=== PATIENT | male | born 1945 | race Caucasian/White ===

== ENCOUNTER 2021-08-26 09:50 | Inpatient (IN) | payer MEDICARE, OTHER ==
[~2021-08-26] VITALS: Ht 175.3 cm; Wt 80.3 kg
[~2021-08-26 09:50] MED LIST: ASPI325; ATOR40TA PO; Aspir 8181 MG PO
--- NOTE | 2021-08-26 17:12 | NUR ---
SHIFT SUMMARY PT A&Ox4; CALM AND COOPEATIVE WITH CARE. PT RESTING IN BED DURING SHIFT. UP WITH 1 PERSON ASSIST. PT DENIES PAIN, CHEST PAIN/PRESSURE, SOB, NAUSEA AND DIZZINESS. RIGHT RADIAL SITE WITH TR BAND IN PLACE, RECOVERING PER ORDERS/PROTOCOL; NO BLEEDING, BRUISING OR HEMATOMA NOTED. VSS. NO OTHER ACUTE CHAGNES NOTED. PLANS FOR SECOND PROCEDURE TOMORROW; NPO AT [place]. WILL CONTINUE TO MONITOR UNITL REPORT GIVEN TO ONCOMING RN.
[2021-08-27 04:11] LABS: BASOPHILS ABSOLUTE AUTO 0.05 K/mm3 (0.00-0.23); BASOPHILS PERCENT AUTO 1 % (0-2); EOSINOPHILS ABSOLUTE AUTO 0.16 K/mm3 (0.00-0.68); EOSINOPHILS PERCENT AUTO 2 % (0-6); Hematocrit 43.5 % (37.0-53.0); Hemoglobin 15.1 g/dL (13.5-17.5); IMMATURE GRAN ABSOLUTE AUTO 0.02 K/mm3 (0.00-0.10); IMMATURE GRAN PERCENT AUTO 0 % (0-1); LYMPHOCYTES ABSOLUTE AUTO 1.87 K/mm3 (0.84-5.20); LYMPHOCYTES PERCENT AUTO 20 % (21-46); MONOCYTES ABSOLUTE AUTO 0.73 K/mm3 (0.16-1.47); MONOCYTES PERCENT AUTO 8 % (4-13); Mean Corpuscular HGB 30.8 pg (26.0-34.0); Mean Corpuscular HGB Conc 34.7 g/dL (31.5-36.5); Mean Corpuscular Volume 89 fL (80-100); Mean Platelet Volume 10.2 fL (9.1-12.4); NEUTROPHILS ABSOLUTE AUTO 6.32 K/mm3 (1.96-9.15); NEUTROPHILS PERCENT AUTO 69 % (41-73); Platelet Count 182 K/mm3 (150-400); RDW Coefficient Variation 12.3 % (11.7-14.2); RDW Standard Deviation 39.9 fL (35.1-46.3); White Blood Cell Count 9.15 K/mm3 (4.00-11.30)
[2021-08-27 04:43] LABS: Anion Gap 6 mmol/L (6-16); Blood Urea Nitrogen 20 mg/dL (8-24); Bun/Creatinine Ratio 18.7 (12.0-20.0); CO2, Blood 23 mmol/L (21-32); Calcium, Blood 9.1 mg/dL (8.5-10.1); Chloride, Blood 112 mmol/L (98-108); Creatinine, Blood 1.07 mg/dL (0.60-1.20); Glomerular Filtration Rate >60 (60-); Glucose, Blood 98 mg/dL (70-99); Potassium, Blood 4.1 mmol/L (3.5-5.5); Sodium, Blood 141 mmol/L (136-145)
--- NOTE | 2021-08-27 06:10 | NUR ---
SHIFT SUMMARY NO ACUTE CHANGES THIS SHIFT. PT A&OX4. SP02>92% ON RA. TELEMETRY READS NSR, HR 60'S. PT HAS R RADIAL SITE, NO BLEEDING NO HEMATOMA. SITE SOFT. ARM BOARD IN PLACE. PT DENIED PAIN, "EXCEPT FOR WHERE THEY DID CPR" PT STATES. PT REFUSES MEDICATION FOR PAIN. PT UP TO BATHROOM SBA TO VOID. PT NPO SINCE MIDNIGHT FOR PROCEDURE. CALL LIGHT IN REACH.
--- NOTE | 2021-08-27 17:19 | NUR ---
SHIFT SUMMARY PT TO TRIP RIDER THIS AM; BACK TO ROOM AT APPRXO 1140; SCANT AMOUNT OF BLOOD NOTED TO DRESSING AT THIS TIME, REMAINED STABLE UNTIL WOUND CHECK AT 1235 DRESSING SATURATED WITH BLOOD, HELD PRESSURE FOR APPRXO 20 MINUTES AND PLACED PRESSURE DRESSING AND 5LB WEIGHT; NOTIIFED DR VELIZ, NO NEW ORDERS; PT CONTINUES TO OOZE FROM SITE; PLACED NICHOLE DRESSING AND REPLACED 5LB BAG; DRESSING AGAIN SATURATED; REPLACED DRESSING WITH OPSITE AND GAUZE; NOTIFIED DR; DR TO ROOM WITH EPI/LIDO AND INJECTED TO SITE; TERGADER WITH CHG IN PLACE AND 5LB WEIGHT REPLACED. WILL CONTINUE TO MONITOR. PT A&Ox4; CALM AND COOPERATIVE WITH CARE. PT RESTING IN BED DURING SHIFT ON BED REST POST OP; PER DR AT BEDSIDE OK TO RAISE HOB TO 30 DEGREES. PT REPORTS BACK PAIN, ASSIST WTIH REPOSITION. PT DENIES CHEST PAIN, SOB, NAUSEA AND DIZZINESS. BP SOFT, BUT TRENDING UP, DR NOTIFIED. RIGHT RADIAL C/D/I NO BLEEDING OR BRUISING NOTED. WILL CONTINUE TO MONITOR.
--- NOTE | 2021-08-27 22:30 | NUR ---
CARE ASSUMPTION PT A&OX4. SP02>92% ON RA. TELEMETRY READS NSR, HR 60'S. PT HAS R RADIAL SITE FROM 08/26. NO BLEEDING, NO HEMATOMA. OPSITE AND ARM BOARD IN PLACE. PT HAS R GROIN SITE FROM 08/27. OOZING AND BRUISING NOTED. NO HEMATOMA, SITE SOFT. SANDBAG PLACED ON SITE FOR PRESSURE. PT LAYING W/ HOB 30 DEGREES. PT USED URINAL. NEEDED TO HAVE BM AT START OF SHIFT. HELPED PT LOG ROLL ONTO BED VALDEZ FOR A LARGE BM. NO CHANGES TO GROIN SITE POST BED VALDEZ. PT DENIES PAIN. CALL LIGHT IN REACH.
[2021-08-28 04:18] LABS: Hematocrit 41.9 % (37.0-53.0); Hemoglobin 14.7 g/dL (13.5-17.5); Mean Corpuscular HGB 30.9 pg (26.0-34.0); Mean Corpuscular HGB Conc 35.1 g/dL (31.5-36.5); Mean Corpuscular Volume 88 fL (80-100); Mean Platelet Volume 10.3 fL (9.1-12.4); Platelet Count 180 K/mm3 (150-400); RDW Coefficient Variation 12.4 % (11.7-14.2); RDW Standard Deviation 40.4 fL (35.1-46.3); Red Blood Cell Count 4.75 M/mm3 (4.30-5.90); White Blood Cell Count 8.96 K/mm3 (4.00-11.30)
--- NOTE | 2021-08-28 06:14 | NUR ---
SHIFT SUMMARY PT A&OX4. SP02>92% ON RA. TELEMETRY READS NSR, HR 60'S. PT HAS R RADIAL SITE FROM 08/26. NO BLEEDING, NO HEMATOMA. OPSITE AND ARM BOARD IN PLACE. PT HAS R GROIN SITE FROM 08/27. OOZING AND BRUISING NOTED. NO HEMATOMA, SITE SOFT. SANDBAG PLACED ON SITE FOR PRESSURE. PT LAYING W/ HOB 30 DEGREES. PT USED URINAL. NEEDED TO HAVE BM AT START OF SHIFT. HELPED PT LOG ROLL ONTO BED VALDEZ FOR A LARGE BM. NO CHANGES TO GROIN SITE POST BED VALDEZ. PT SLEPT OFF AND ON DURING SHIFT. DID NEWSPAPER BRAIN PUZZLES IN MIDDLE OF NIGHT. CALL LIGHT IN REACH.
--- NOTE | 2021-08-28 09:52 | NUR ---
PATIENT REMAINS ALERT AND ORIENTED X4. ON ROOM AIR SATING ABOVE 94%. DENIES SOB. LUNGS SOUNDING CLEAR. TELE SHOWING SINUS RHYTHM WITH HR 60-70'S. DENIES CHEST PAIN/PRESSURE. VITAL SIGNS STABLE. POST ANGIO TEACHING REVIEWED. RIGHT RADIAL SITE WNL. NO SIGNS OF BLEEDING OR HEMATOMA. REMAINS SOFT AND NONTENDER. ARM BOARD IN PLACE. RIGHT GROIN SITE WITH DRESSING IN PLACE, DRAINAGE UNDER DRESSING REMAINS UNCHANGED PER CUSTOMER CARE VOICE CONSULTANT AND UNCHANGED THROUGHOUT THE MORNING. RIGHT GROIN SITE SLIGHTLY SWOLLEN AND RED. REMAINS SOFT AND NONTENDER. NO SIGNS OF ACTIVE HEMATOMA. PATIENT UP TO BATHROOM THIS AM. SITE REMAINS UNCHANGED. SKIN OTHERWISE OVERALL INTACT. DENIES ABDOMINAL PAIN/NAUSEA. EATING BREAKFAST AND DRINKING COFFEE. DENIES NEEDS AT THIS TIME. WILL CONTINUE TO MONITOR.
--- NOTE | 2021-08-28 10:03 | NUR ---
PRE ALGEBRA TEACHER IN TO SEE PATIENT. PLAN TO CHANGE RIGHT GROIN DRESSING AND WALK PATIENT. WILL MONITOR FOR ANY BLEEDING.
[2021-08-28] MEDS ORDERED: CLOP75 PO (10:50)
--- NOTE | 2021-08-28 13:31 | NUR ---
DISCHARGE: DISCHARGE INSTRUCTIONS REVIEWED. NO ACUTE CHANGES SEE PREVIOUS NOTE. NO BLEEDING AT GROIN SITE. POST ANGIO RADIAL AND GROIN SITE INSTRUCTIONS AND EDUCATION REVIEWED AND PATIENT WAS ABLE TO TEACH BACK. NEW MEDICATIONS REVIEWED AND CALLED INTO PHARAMACY. PATIENT VERBALIZED HE WILL BE PCIKING UP TODAY. IV TAKEN OUT PER PROTOCOL. PATIENT LEFT UNIT WALKING WITH AND ALL PERSONAL BELONGINGS.
== END 2021-08-28 13:35 | disposition home or self-care (01) | DRG 246 ==
LOC: MHTC 09:50 → PCU 13:02 → MHTC 13:02 → PCU 14:01
PROVIDERS: Internal Medicine Interventional Cardiology; ADMIT Internal Medicine Cardiovascular Disease
PROC: 027035Z Dilation of Coronary Artery, One Artery with Two Drug-eluting Intraluminal Devices, Percutaneous Approach (ICD-10-PCS; principal; 2021-08-27)
PROC: 5A12012 Performance of Cardiac Output, Single, Manual (ICD-10-PCS; 2021-08-27)
PROC: 4A023N7 Measurement of Cardiac Sampling and Pressure, Left Heart, Percutaneous Approach (ICD-10-PCS; 2021-08-27)
PROC: 4A023N7 Measurement of Cardiac Sampling and Pressure, Left Heart, Percutaneous Approach (ICD-10-PCS; 2021-08-28)
PROC: B2111ZZ Fluoroscopy of Multiple Coronary Arteries using Low Osmolar Contrast (ICD-10-PCS; 2021-08-28)
PROC: B24BZZZ Ultrasonography of Heart with Aorta (ICD-10-PCS; 2021-08-28)
PROC: B2111ZZ Fluoroscopy of Multiple Coronary Arteries using Low Osmolar Contrast (ICD-10-PCS; 2021-08-28)
DX: I21.09 ST elevation (STEMI) myocardial infarction involving other coronary artery of anterior wall (principal); I46.2 Cardiac arrest due to underlying cardiac condition; I25.10 Atherosclerotic heart disease of native coronary artery without angina pectoris; E78.5 Hyperlipidemia, unspecified; J45.909 Unspecified asthma, uncomplicated; I10 Essential (primary) hypertension; R00.1 Bradycardia, unspecified; Z79.82 Long term (current) use of aspirin
CPT/HCPCS: 36415; 71045; 76937; 80048; 85025; 85027; 85347; 93458; 94762; 99152; 99153; A9270; C1725; C1760; C1769; C1874; C1887; C1894; C9600; G0378; J0171; J0461; J1644; J2250; J2310; J2405; J3010; J7030; J7050; Q9967

== ENCOUNTER 2022-06-03 12:11 | Inpatient (IN) | payer MEDICARE, OTHER ==
[~2022-06-03] VITALS: Ht 172.7 cm; Wt 78.0 kg
[~2022-06-03 12:11] MED LIST changes: +CLOP75 PO
[2022-06-03 13:36] LABS: BASOPHILS ABSOLUTE AUTO 0.05 K/mm3 (0.00-0.23); BASOPHILS PERCENT AUTO 0 % (0-2); EOSINOPHILS ABSOLUTE AUTO 0.01 K/mm3 (0.00-0.68); EOSINOPHILS PERCENT AUTO 0 % (0-6); Hemoglobin 16.1 g/dL (13.5-17.5); IMMATURE GRAN ABSOLUTE AUTO 0.08 K/mm3 (0.00-0.10); IMMATURE GRAN PERCENT AUTO 1 % (0-1); LYMPHOCYTES ABSOLUTE AUTO 0.74 K/mm3 (0.84-5.20); LYMPHOCYTES PERCENT AUTO 4 % (21-46); MONOCYTES ABSOLUTE AUTO 1.03 K/mm3 (0.16-1.47); MONOCYTES PERCENT AUTO 6 % (4-13); Mean Corpuscular HGB Conc 34.3 g/dL (31.5-36.5); Mean Corpuscular Volume 90 fL (80-100); Mean Platelet Volume 10.1 fL (9.1-12.4); NEUTROPHILS ABSOLUTE AUTO 15.62 K/mm3 (1.96-9.15); NEUTROPHILS PERCENT AUTO 89 % (41-73); Platelet Count 204 K/mm3 (150-400); RDW Coefficient Variation 12.4 % (11.7-14.2); RDW Standard Deviation 40.7 fL (35.1-46.3); White Blood Cell Count 17.53 K/mm3 (4.00-11.30)
[2022-06-03 14:12] LABS: Albumin, Blood 3.8 g/dL (3.4-5.0); Albumin/Globulin Ratio 1.2 (0.8-1.8); Bilirubin, Total 0.9 mg/dL (0.1-1.0); Calcium, Blood 8.9 mg/dL (8.5-10.1); Globulin, Blood 3.2 g/dL (2.2-4.0); Potassium, Blood 4.9 mmol/L (3.5-5.5)
[2022-06-03 14:38] LABS: Source, Urine Clean Catch
[2022-06-03 15:22] LABS: Blood, Urine Neg (Neg); Color, Urine Amber (P-Yellow); Glucose Qualitative, Urine Neg (Neg); Ketones, Urine 2+ (Neg); Leukocyte Esterase, Urine 1+ (Neg); Nitrite, Urine Neg (Neg); Protein, Urine 2+ (Neg); Specific Gravity, Urine 1.015 (1.003-1.022); Urobilinogen, Urine 2+ (Normal); pH, Urine 6.5 (5.0-8.0)
[2022-06-03 17:43] LABS: Appearance, Urine Hazy (Clear); Bilirubin, Urine 1+ (Neg)
[2022-06-03 17:45] LABS: Bacteria Few /hpf; Mucus Heavy (0-Heavy); Squamous Epithelial Cells Few /hpf (Few)
--- NOTE | 2022-06-03 20:15 | NUR ---
PT TEMPERATURE RETAKEN PT TEMPERATURE RE-TAKEN (ORALLY) THIS TIME. 97.8 DEGREES. PT ADMIT IS INCOMPLETE SO WE CANNOT ENTER THIS INTO VITAL SIGNS JUST YET.
--- NOTE | 2022-06-03 22:35 | NUR ---
PT STATUS ER HANDOFF REPORT RECEIVED. PT ARRIVED VIA WHEELCHAIR. TELEMETRY MONITORING IS NOW IN PLACE. IV FLUIDS INFUSING. ANTIB RX ARE SCHEDULED. PT DENIES PAIN. PERSONAL POSSESSIONS WITH PT. AWAITING BLOOD CULTURES. CALL BUTTON WITHIN REACH
[2022-06-04 04:56] LABS: Hematocrit 41.2 % (37.0-53.0); Hemoglobin 14.3 g/dL (13.5-17.5); Mean Corpuscular HGB 31.2 pg (26.0-34.0); Mean Corpuscular HGB Conc 34.7 g/dL (31.5-36.5); Mean Corpuscular Volume 90 fL (80-100); Platelet Count 158 K/mm3 (150-400); RDW Coefficient Variation 12.5 % (11.7-14.2); RDW Standard Deviation 40.4 fL (35.1-46.3); Red Blood Cell Count 4.59 M/mm3 (4.30-5.90)
[2022-06-04 05:34] LABS: Calcium, Blood 8.8 mg/dL (8.5-10.1)
--- NOTE | 2022-06-04 06:26 | NUR ---
SHIFT SUMMARY PT ARRIVED TO THE UNIT AT APPROX 1999. ADMITTING DX OF ACUTE DIVERTICULITIS, PT EXPERIENCED INCREASING ABDOMINAL PAIN AND CRAMPING AT HOME AND CAME TO THE ED. CONTINUOUS IV INF OF NS RUNNING AT 75, IV ABX ADMINISTERED. NO C/O OF PAIN OR NAUSEA WHILE ON OUR UNIT. PT INDEPENDENT IN THE ROOM, AOX4, PLEASANT AND COOPERATIVE WITH CARE, SLEPT COMFORTABLY. NO ACUTE EVENTS, VSS.
--- NOTE | 2022-06-04 19:21 | NUR ---
SHIFT SUMMARY PT IS A&O X4 AND PLEASANT. PT WAS INDPENDENT IN ROOM. PT HAD AT BEDSIDE FOR MOST OF THE AFTERNOON. PT HAD NO C/O OF PAIN TODAY. PT HAD AN ORAL TEMP OF 101. NOTIFIED. TEMPERATURE CAME DOWN TO 99 WITHOUT MEDICATION. PT TOLERATED CLEAR LIQUIED WITH NO C/O NAUSEA. BED IN LOWEST POSITION AND CALL LIGHT IN REACH.
--- NOTE | 2022-06-05 04:26 | NUR ---
LAST TURNER SUMMARY A/OX4 AND COOPERATIVE WITH CARE. PT RESTED T/O THE NIGHT. PT HAD FEVER OF 101.3. ADMINISTERED TYLENOL; TEMP DROPPED TO 99. PT DENIED PAIN. PT CONTINUING W/CLEAR LIQUID AND TOLERATING WELL. CALL LIGHT IN REACH.
[2022-06-05 05:53] LABS: BASOPHILS ABSOLUTE AUTO 0.02 K/mm3 (0.00-0.23); BASOPHILS PERCENT AUTO 0 % (0-2); EOSINOPHILS ABSOLUTE AUTO 0.02 K/mm3 (0.00-0.68); EOSINOPHILS PERCENT AUTO 0 % (0-6); Hematocrit 37.8 % (37.0-53.0); Hemoglobin 13.1 g/dL (13.5-17.5); IMMATURE GRAN ABSOLUTE AUTO 0.08 K/mm3 (0.00-0.10); IMMATURE GRAN PERCENT AUTO 1 % (0-1); LYMPHOCYTES ABSOLUTE AUTO 0.58 K/mm3 (0.84-5.20); LYMPHOCYTES PERCENT AUTO 5 % (21-46); MONOCYTES ABSOLUTE AUTO 0.76 K/mm3 (0.16-1.47); MONOCYTES PERCENT AUTO 7 % (4-13); Mean Corpuscular HGB 31.6 pg (26.0-34.0); Mean Corpuscular HGB Conc 34.7 g/dL (31.5-36.5); Mean Corpuscular Volume 91 fL (80-100); NEUTROPHILS ABSOLUTE AUTO 10.15 K/mm3 (1.96-9.15); NEUTROPHILS PERCENT AUTO 87 % (41-73); Platelet Count 125 K/mm3 (150-400); RDW Coefficient Variation 12.4 % (11.7-14.2); RDW Standard Deviation 41.2 fL (35.1-46.3); Red Blood Cell Count 4.15 M/mm3 (4.30-5.90); White Blood Cell Count 11.61 K/mm3 (4.00-11.30)
[2022-06-05 06:26] LABS: Albumin, Blood 2.6 g/dL (3.4-5.0); Albumin/Globulin Ratio 0.8 (0.8-1.8); Bilirubin, Total 1.3 mg/dL (0.1-1.0); Bun/Creatinine Ratio 20.8 (12.0-20.0); Calcium, Blood 8.7 mg/dL (8.5-10.1); Creatinine, Blood 1.01 mg/dL (0.60-1.20); Globulin, Blood 3.1 g/dL (2.2-4.0); Potassium, Blood 4.1 mmol/L (3.5-5.5); Total Protein, Blood 5.7 g/dL (6.4-8.2)
[2022-06-05] MEDS ORDERED: BACTRIM DS TAB1 EAC6 PO (14:06)
[2022-06-05] MEDS ORDERED: FLAGYL500 M1 PO (14:08)
--- NOTE | 2022-06-05 17:50 | NUR ---
PT DISCHARED HOME WITH . INSTRUCTIONS AND EDUCATION PACKET GIVEN. PT VERBALIZED UNDERSTANDING AND HAD NO FURTHER QUESTIONS. PT STATED APPRECIATION OF CARE. PT WAS WHEELED TO WAITING CAR.
== END 2022-06-05 17:47 | disposition home or self-care (01) | DRG 392 ==
LOC: ER 12:11 → MEDS 18:21
PROVIDERS: Family Medicine; Physician Assistant; Student in an Organized Health Care Education/Training Program; ADMIT Internal Medicine
DX: K57.20 Diverticulitis of large intestine with perforation and abscess without bleeding (principal); I25.10 Atherosclerotic heart disease of native coronary artery without angina pectoris; D72.829 Elevated white blood cell count, unspecified; Z98.890 Other specified postprocedural states; Z95.5 Presence of coronary angioplasty implant and graft; Z87.891 Personal history of nicotine dependence
CPT/HCPCS: 36415; 74177; 80048; 80053; 81001; 83690; 85025; 85027; 87040; 87086; A9270; J0696; J1650; J7030; Q9967

== ENCOUNTER → 2022-06-28 | Outpatient (CLI) | payer MEDICARE, OTHER ==
[~2022-06-28] MED LIST changes: +BACTRIM DS TAB1 EAC6 PO; +FLAGYL500 M1 PO
[2022-06-28 15:21] LABS: Adenovirus F 40/41 Not Detected (NOT DETECT); Astrovirus Not Detected (NOT DETECT); Campylobacter Sp Not Detected (NOT DETECT); Cryptosporidium Not Detected (NOT DETECT); Cyclospora Cayetanensis Not Detected (NOT DETECT); E. Coli O157 Not Detected (NOT DETECT); Entamoeba Histolytica Not Detected (NOT DETECT); Enteroaggregative E. coli-EAEC Not Detected (NOT DETECT); Enteropathogenic E. coli-EPEC Not Detected (NOT DETECT); Enterotoxigenic E. coli-ETEC Not Detected (NOT DETECT); Giardia Lamblia Not Detected (NOT DETECT); Norovirus GI/GII Not Detected (NOT DETECT); Plesiomonas Shigelloides Not Detected (NOT DETECT); Rotavirus A Not Detected (NOT DETECT); Salmonella Sp Not Detected (NOT DETECT); Sapovirus Not Detected (NOT DETECT); Shiga Toxin-prod E. coli-STEC Not Detected (NOT DETECT); Shigella/Enteroin E. coli-EIEC Not Detected (NOT DETECT); Vibrio Cholerae Not Detected (NOT DETECT); Vibrio Sp Not Detected (NOT DETECT); Yersinia Enterocolitica Not Detected (NOT DETECT)
== END | disposition home or self-care (01) ==
LOC: LAB 08:30 → LAB SHORT 08:30
PROVIDERS: Physician Assistant
DX: R19.7 Diarrhea, unspecified (principal)
CPT/HCPCS: 87324; 87507

== ENCOUNTER → 2023-09-29 | Outpatient (CLI) | payer MEDICARE, OTHER ==
[~2023-09-29] MED LIST changes: +ALBU90OI INH
[2023-09-30 12:02] LABS: Stool Occult Bld Immuno 1 Negative (NEGATIVE)
== END ==
LOC: LAB 11:42 → LAB SHORT 11:42
PROVIDERS: Physician Assistant
DX: R19.5 Other fecal abnormalities (principal)
CPT/HCPCS: 82274